=== PATIENT | male | born 1950 | race American Indian/Alaskan Native ===

== ENCOUNTER 2021-01-10 12:45 | Emergency (ER) | payer OTHER ==
[2021-01-10 13:12] VITALS: BP 162/83
--- NOTE | 2021-01-10 13:25 | Emergency Department Report ---
ED General Adult HPI - General Chief complaint: High BP Stated complaint: HYPERTENSIVE Time Seen by Provider: 01/10/21 13:02 Source: patient Mode of arrival: Ambulatory Limitations: No Limitations - History of Present Illness Initial comments: Patient is a 70-year-old male presents emergency room complaints of elevated blood pressure. He states that he was at [facility] today and decided to use the blood pressure report checker. He states that his blood pressure was elevated and his systolic blood pressure was 190. He states he took his blood pressure m edication this morning around 11:30 AM, he states that he checked his blood pressure at 12:30 PM at [facility]. He states he was not having any symptoms at all and just checked it because it was there. He states that 3 weeks ago he went to [facility] and was advised that his blood pressure was elevated. He states he typically takes 25 mg of losartan daily. He states that during his visit they decided to increase his losartan to 50 mg daily. He states that they also ordered him a blood pressure cuff at home which is supposed to be delivered but has not received it yet. He states he just started increasing his medication 1 week ago as he had just received it. He denies any chest pain, shortness of breath, vision changes, numbness, weakness, speech disturbance, gait disturbance, headache. He also has a past medical history of diabetes. No allergies to medications. ED Review of Systems ROS: Stated complaint: HYPERTENSIVE Other details as noted in HPI Comment: All other systems reviewed and negative ED Past Medical Hx - Past Medical History Hx Hypertension: Yes - Surgical History Additional Surgical History: feet, ED Physical Exam - General Limitations: No Limitations General appearance: alert, in no apparent distress - Head Head exam: Present: atraumatic, normocephalic - Eye Eye exam: Present: normal appearance - ENT ENT exam: Present: mucous membranes moist - Respiratory Respiratory exam: Present: normal lung sounds bilaterally. Absent: respiratory distress, wheezes, rales, rhonchi, stridor, chest wall tenderness, accessory mus cabrera use, decreased breath sounds, prolonged expiratory - Cardiovascular Cardiovascular Exam: Present: regular rate, normal rhythm, normal heart sounds. Absent: systolic murmur - Neurological Exam Neurological exam: Present: alert, oriented X3, CN II-XII intact, normal gait. Absent: motor sensory deficit - Psychiatric Psychiatric exam: Present: normal affect, normal mood - Skin Skin exam: Present: warm, dry, intact ED Course Vital Signs 01/10/21 01/10/21 12:59 13:01 Temperature 98.1 F Pulse Rate 74 Respiratory 20 Rate Blood Pressure 162/83 O2 Sat by Pulse 100 Oximetry ED Medical Decision Making - Medical Decision Making Patient is a 70-year-old male presents emergency room complaints of elevated blood pressure. He states that he was at [facility] today and decided to use the blood pressure report checker. He states that his blood pressure was elevated and his systolic blood pressure was 190. He states he took his blood pressure medication this morning around 11:30 AM, he states that he checked his blood pressure at 12:30 PM at [facility]. He states he was not having any symptoms at all and just checked it because it was there. He states that 3 weeks ago he went [facility] and was advised that his blood pressure was elevated. He states he typically takes 25 mg of losartan daily. He states that during his visit they decided to increase his losartan to 50 mg daily. He states that they also ordered him a blood pressure cuff at home which is supposed to be delivered but has not received it yet. He states he just started increasing his medication 1 week ago as he had just received it. He denies any chest pain, shortness of breath, vision changes, numbness, weakness, speech disturbance, gait disturbance, headache. He also has a past medical history of diabetes. No allergies to medications. Vitals with moderately elevated blood pressure around 162/83, patient is currently asymptomatic, he has no clinical signs of hypertensive emergency/urgency. The up-to-date medical literature does not recommend emergently lowering asymptomatic elevated blood pressure. Accu-Chek was performed and it is 103. Advised patient Please increase your water intake. Please keep a blood pressure log and take your blood pressure twice a day and take this to the primary care doctor. Eat a low- sodium diet. Incorporate 30 to 60 minutes of aerobic exercise. Return to emergency room immediately for any new or worsening symptoms including but not limited to chest pain, shortness of breath, headache, vision changes, numbness, weakness, problems with your speech or walking, etc. Critical care attestation.: If time is entered above; I have spent that time in minutes in the direct care of this critically ill patient, excluding procedure time. ED Disposition Clinical Impression: Elevated blood pressure reading, Hx of essential hypertension, Hx of diabetes mellitus Disposition: DC-01 TO HOME OR SELFCARE Is pt being admited?: No Does the pt Need Aspirin: No Condition: Stable Instructions: Low-Sodium Eating Plan, Managing Your Hypertension, Hypertension, Adult Additional Instructions: Please increase your water intake. Please keep a blood pressure log and take your blood pressure twice a day and take this to the primary care doctor. Eat a low-sodium diet. Incorporate 30 to 60 minutes of aerobic exercise. Return to emergency room immediately for any new or worsening symptoms including but not limited to chest pain, shortness of breath, headache, vision changes, numbness, weakness, problems with your speech or walking, etc. Referrals: PRIMARY CARE, [Referring] - 2-3 Days Time of Disposition: 13:25 Print Language: EGYPTIAN
== END 2021-01-10 14:05 | disposition home or self-care (01) ==
LOC: ED 12:45
DX: I10 Essential (primary) hypertension (principal); E11.9 Type 2 diabetes mellitus without complications; Z98.890 Other specified postprocedural states
CPT/HCPCS: 82962; 99282